=== PATIENT | female | born 1965 | race African-American/Black ===

== ENCOUNTER 2019-03-07 20:44 | Emergency (ER) | payer MEDICARE, MEDICAID ==
[~2019-03-07] VITALS: Ht 165.1 cm; Wt 65.8 kg
[2019-03-07 21:52] LABS: CALCIUM, SERUM 9.1 mg/dL (8.5-10.1); CREATININE 1.8 mg/dL (0.6-1.3); POTASSIUM 3.5 mmol/L (3.5-5.1)
--- NOTE | 2019-03-07 21:59 | NUR ---
[facility] PER UROLOGIST ORDER D/T HIGH ENOC AND INTERMITENT CP FOR THE PAST 1 MONTH. PT TO ER BED 8. AAOX4, AMBULATORY. BREATHING DEEP BUT REGULAR. PT STATES THAT HER CP HAS BEEN GOING ON FOR THE PAST 1 MONTH. DESCRIBES PAIN ACHING AND PRESSURE. PT ALSO REPORT FEELING SUFFOCATED IF SOMEONE IS SUFFOCATING HER. BP WAS NOTED INITIALLI AT 174/95. MD WAS AT BEDSIDE FOR EVAL. ORDERS RECEIVED NOTED AND CARRIED OUT.
--- NOTE | 2019-03-07 22:02 | NUR ---
JOSE EMERSON ON LAC 20G. BLOOD WAS DRAWN AND GIVEN TO KILN HEAD HOUSE OPERATOR AT BEDSIDE
[2019-03-07 22:08] LABS: BASOPHILS # (AUTO) 0.1 /CMM (0.0-0.2); BASOPHILS % (AUTO) 0.9 % (0.0-2.0); EOSINOPHILS % (AUTO) 5.7 % (0.0-6.0); HEMATOCRIT 35 % (33-45); HEMOGLOBIN 12.1 g/dL (11.5-14.8); LYMPHOCYTES # (AUTO) 1.5 /CMM (0.8-4.8); LYMPHOCYTES % (AUTO) 26.5 % (20.0-44.0); MEAN CORPUSCULAR HGB CONC 34 g/dl (31.0-36.0); MEAN CORPUSCULAR VOLUME 107 fL (82-100); MONOCYTES # (AUTO) 0.8 /CMM (0.1-1.30); MONOCYTES % (AUTO) 15.2 % (2.0-12.0); NEUTROPHILS # (AUTO) 2.9 /CMM (1.8-8.9); NEUTROPHILS % (AUTO) 51.7 % (43.0-81.0); PLATELET COUNT (AUTO) 144 /CMM (150-450); WHITE BLOOD COUNT (AUTO) 5.6 K/uL (4.3-11.0)
[2019-03-07 22:35] LABS: EOSINOPHILS % (MANUAL) 2 % (0-4); LYMPHOCYTES % (MANUAL) 34 % (16-48); MONOCYTES % (MANUAL) 8 % (0-11.0); NEUTROPHILS % (MANUAL) 56 (42-76)
[2019-03-07 22:37] LABS: BILIRUBIN,DIRECT 0.1 mg/dL (0.0-0.2); BILIRUBIN,TOTAL 0.6 mg/dL (0.2-1.0); MAGNESIUM 1.8 mg/dL (1.8-2.4); PHOSPHORUS 2.6 mg/dL (2.5-4.9); TOTAL PROTEIN, SERUM 6.9 g/dL (6.4-8.2)
[2019-03-07] MEDS ORDERED: HYDROCODONE/APAP 10/325MG 1 EA TABLET ONE (22:43)
[2019-03-07] MEDS: HYDROCODONE/APAP 10/325MG 1 EA TABLET PO ONE (22:44)
--- NOTE | 2019-03-07 22:44 | NUR ---
Kaylee auguste in [facility] - 03/07/19 at 2249 by ANGELLA Fady RONDON [phone]
--- NOTE | 2019-03-07 23:28 | NUR ---
PT AMBULATED TO BATHROOM ON HER OWN W/O ASSITANCE ON STEADY GAIT
--- NOTE | 2019-03-07 23:48 | NUR ---
Kaylee auguste in ED - 03/07/19 at 2348 by JANINE SPOKE WITH NUCLEAR MED TECH. ETA 1-1.5 HOURS
--- NOTE | 2019-03-07 23:49 | NUR ---
SPOKE WITH NUCLEAR MED TECH. ETA 1-1.5 HOURS
--- NOTE | 2019-03-08 02:24 | NUR ---
PT BACK FROM PERFUSSION SCAN
--- NOTE | 2019-03-08 02:26 | NUR ---
NM: LUNG V/Q WAS COMPLETED. TECH:RB.
--- NOTE | 2019-03-08 04:40 | NUR ---
IV removed. Catheter intact and site benign. Pressure and 4x4 applied to site. No bleeding noted.Patient discharged to home in stable condition. Written and verbal after care instructions given. Patient verbalizes understanding of instruction. Pt ambulatory with a steady gait
[2019-03-08 04:44] VITALS: BP 158/84
== END 2019-03-08 04:46 | disposition home or self-care (01) ==
LOC: ER 20:50
DX: E11.22 Type 2 diabetes mellitus with diabetic chronic kidney disease (principal); I13.2 Hypertensive heart and chronic kidney disease with heart failure and with stage 5 chronic kidney disease, or end stage renal disease; I50.9 Heart failure, unspecified; N18.6 End stage renal disease; R07.89 Other chest pain; Z99.2 Dependence on renal dialysis; Z98.890 Other specified postprocedural states
CPT/HCPCS: 36415 ×2; 71045; 78582; 80048; 80076; 83735; 84100; 84145; 84484 ×2; 85025; 85378; 93005 ×2; 99284; A9540; A9567

== ENCOUNTER 2019-11-29 11:31 | Inpatient (IN) | payer MEDICARE, OTHER ==
[~2019-11-29] VITALS: Ht 165.1 cm; Wt 69.4 kg
--- NOTE | 2019-11-29 11:40 | NUR ---
sent by PMD due to chest pain, left rib area, sob x few months, worst today, last HD thursday. Patient a/ox4, no distress noted at this time. Attached to the monitor and storage bin tender.
[2019-11-29] MEDS ORDERED: MORPHINE SULFATE INJ 4 MG/ML DISP.SYRIN ONE (11:53)
[2019-11-29] MEDS ORDERED: hydrALAZINE HCL IV 20 MG VIAL ONE (11:53)
[2019-11-29] MEDS ORDERED: ONDANSETRON HCL/PF 4 MG/2 ML VIAL ONE (11:53)
[2019-11-29] MEDS ORDERED: hydrALAZINE HCL IV 20 MG VIAL IV ONE (12:00)
[2019-11-29] MEDS ORDERED: ONDANSETRON HCL/PF 4 MG/2 ML VIAL IVP ONE (12:00)
[2019-11-29] MEDS ORDERED: MORPHINE SULFATE INJ 2 MG/ML DISP.SYRIN IV ONE (12:00)
[2019-11-29 12:04] LABS: EOSINOPHILS % (AUTO) 4.6 % (0.0-6.0); HEMATOCRIT 38 % (33-45); HEMOGLOBIN 12.4 g/dL (11.5-14.8); LYMPHOCYTES # (AUTO) 0.6 /CMM (0.8-4.8); LYMPHOCYTES % (AUTO) 17.8 % (20.0-44.0); MEAN CORPUSCULAR HGB CONC 32 g/dl (31.0-36.0); MEAN CORPUSCULAR VOLUME 110 fL (82-100); MONOCYTES # (AUTO) 0.4 /CMM (0.1-1.30); MONOCYTES % (AUTO) 13.1 % (2.0-12.0); NEUTROPHILS # (AUTO) 2.1 /CMM (1.8-8.9); NEUTROPHILS % (AUTO) 63.5 % (43.0-81.0); PLATELET COUNT (AUTO) 158 /CMM (150-450); RED BLOOD CELL COUNT(AUTO) 3.49 MIL/uL (4.0-5.2); WHITE BLOOD COUNT (AUTO) 3.3 K/uL (4.3-11.0)
[2019-11-29 12:12] LABS: CALCIUM, SERUM 8.7 mg/dL (8.5-10.1); CREATININE 3.2 mg/dL (0.6-1.3); POTASSIUM 5.2 mmol/L (3.5-5.1)
[2019-11-29] MEDS ORDERED: DOCU-141 PO (13:12)
[2019-11-29] MEDS ORDERED: HYDR-3972 PO (13:12)
[2019-11-29] MEDS ORDERED: NIFE-35 PO (13:12)
[2019-11-29] MEDS ORDERED: FOLI0.8C PO (13:13)
[2019-11-29] MEDS ORDERED: CAPT50TA3 PO (13:13)
[2019-11-29] MEDS ORDERED: BENA20TA9 PO (13:13)
[2019-11-29] MEDS ORDERED: ISOS5TAB3 PO (13:13)
--- NOTE | 2019-11-29 13:16 | NUR ---
paged vip nephro
--- NOTE | 2019-11-29 14:02 | NUR ---
PATIENT RESTING, NO DISTRESS NOTED. DR. CRUZ AT BEDSIDE FOR EVAL.
--- NOTE | 2019-11-29 14:52 | NUR ---
REPORT GIVEN TO NICK BLANCO.
--- NOTE | 2019-11-29 15:54 | NUR ---
PATIENT TRANSFERRED TO ROOM VIA ACLS PROTOCOL, ENDORSED TO NICK BLANCO. IN STABLE CONDITION.
[2019-11-29 16:00] VITALS: BP 198/109
--- NOTE | 2019-11-29 16:00 | NUR ---
ORACLE DEVELOPER NOTES PATIENT RECEIVED ALERT AND ORIENTED X4, NO RESPIRATORY DISTRESS, C/O PAIN ON LEFT UPPER CHEST 7/10 WITH ACTIVITY. PATIENT'S SKIN WARM TO TOUCH, IV ACCESS ON THE LAC #20G INTACT AND PATENT. AV FISTULA ON THE KVNG, SKIN ASSESSED NO SKIN BREAKDOWN. PATIENT'S BELONGINGS AT BEDSIDE, MD AWARE OF ADMISSION, AWAITING FOR ADMISSION ORDERS.
[2019-11-29] MEDS: INDOMETHACIN 25 MG CAPSULE PO SCH (18:04)
--- NOTE | 2019-11-29 19:20 | NUR ---
SECRETARY RECEPTIONIST NOTES RECEIVED PATIENT RESTING IN BED COMFORTABLY; BREATHING EVEN AND UNLABORED; NO SOB NOTED; PATIENT TOLERATING ROOM AIR WELL; CURRENTLY UNDERGOING DIALYSIS WITH HD NURSE AT BEDSIDE; TELE MONITOR READS SINUS RHYTHM 74BPM; LAC #20 INTACT AND PATENT; FLUSHING WELL; NO S/S OF REDNESS OR INFILTRATION NOTED; KVNG AV FISTULA INTACT FOR HD; SAFETY PRECAUTIONS IMPLEMENTED; BED LOCKED IN LOW POSITION; SIDE RAILSX2; CALL LIGHT WITHIN REACH; WILL CONT TO MONITOR
[2019-11-29] MEDS ORDERED: ZOLPIDEM TARTRATE 5 MG TABLET PO PRN (19:30)
[2019-11-29] MEDS ORDERED: ACETAMINOPHEN 325 MG TABLET PO PRN (19:30)
[2019-11-29] MEDS ORDERED: ONDANSETRON HCL/PF 4 MG/2 ML VIAL IVP PRN (19:30)
[2019-11-29] MEDS ORDERED: Z GUARD REMEDY 2 OZ OINT TP PRN (19:30)
[2019-11-29 20:00] VITALS: BP 185/113
[2019-11-29 20:43] VITALS: BP 185/113
--- NOTE | 2019-11-29 22:02 | NUR ---
TECTONOPHYSICIST NOTES DIALYSIS NURSE AT BEDSIDE; PATIENT BP 183/106 HR 69; NO BP MEDS DUE DURING SHIFT; SPOKE WITH CLIENT RELATIONSHIP CONSULTANT MD MELGOZA; ORDERED HYDRALAZINE 25MG PO Q6HRS PRN SBP OVER 160; WILL ADMINISTER PER MD ORDER AND CONT TO MONITOR
[2019-11-29] MEDS: hydrALAZINE HCL 25 MG TABLET PO PRN (22:19)
--- NOTE | 2019-11-29 23:54 | NUR ---
FOREST RESOURCES PROFESSOR NOTES PATIENT STILL UNDERGOING HD AND HD NURSE AT BEDSIDE; BP 170/98, TELE MONITOR READS SINUS RHYTHM 70BPM; WILL CONT TO MONITOR
--- NOTE | 2019-11-29 23:58 | NUR ---
AUTOS DISASSEMBLER NOTES HD COMPLETED; 2300 OUTPUT; WILL CONT TO MONITOR
[2019-11-30] VITALS (8 sets, daily range): BP systolic 148–181; BP diastolic 68–104
[2019-11-30] MEDS: HYDROCODONE/APAP 5/325MG 1 EACH TABLET PO PRN ×3 (00:11→21:11)
--- NOTE | 2019-11-30 00:20 | NUR ---
PARTRIDGE FARMER NOTES PATIENT REFUSED NITRO OINTMENT SCHEDULED; PATIENT REQUESTED NORCO; BP 170/98; WILL CONT TO MONITOR;
--- NOTE | 2019-11-30 04:30 | NUR ---
DRAPERY SEAMSTRESS NOTES PATIENT BP 170/104 P: 68, HYDRALAZINE 25 MG PO GIVEN PER MD ORDER; WILL CONT TO MONITOR BP RE-CHECKED 6 164/96 P: 63, WILL CONT TO MONITOR
[2019-11-30] MEDS: hydrALAZINE HCL 25 MG TABLET PO PRN (04:39)
[2019-11-30] MEDS: NITROGLYCERIN 30 GM TUBE TOP SCH ×3 (05:16→06:14)
--- NOTE | 2019-11-30 05:16 | NUR ---
TARGET MAN NOTES PATIENT STILL REFUSING SCHEDULED NITRO OINTMENT; PATIENT EDUCATED AND INFORMED ON RISKS AND BENEFITS; PATIENT STILL REFUSED MED AND IS DENYING CHEST PAIN; WILL CONT TO MONITOR AND INFORM ONCOMING SHIFT ABOUT PATIENT REFUSAL OF MED
[2019-11-30 06:26] LABS: BASOPHILS % (AUTO) 0.7 % (0.0-2.0); EOSINOPHILS % (AUTO) 5.2 % (0.0-6.0); HEMATOCRIT 38 % (33-45); HEMOGLOBIN 12.6 g/dL (11.5-14.8); LYMPHOCYTES # (AUTO) 0.8 /CMM (0.8-4.8); LYMPHOCYTES % (AUTO) 29.8 % (20.0-44.0); MEAN CORPUSCULAR HGB CONC 33 g/dl (31.0-36.0); MEAN CORPUSCULAR VOLUME 108 fL (82-100); MONOCYTES # (AUTO) 0.5 /CMM (0.1-1.30); MONOCYTES % (AUTO) 16.9 % (2.0-12.0); NEUTROPHILS # (AUTO) 1.3 /CMM (1.8-8.9); NEUTROPHILS % (AUTO) 47.4 % (43.0-81.0); PLATELET COUNT (AUTO) 129 /CMM (150-450); RED BLOOD CELL COUNT(AUTO) 3.55 MIL/uL (4.0-5.2); WHITE BLOOD COUNT (AUTO) 2.8 K/uL (4.3-11.0)
--- NOTE | 2019-11-30 06:35 | NUR ---
LEARNING ADMINISTRATOR CLOSING NOTES PATIENT RESTING IN BED COMFORTABLY; BREATHING EVEN AND UNLABORED; NO SOB NOTED; TOLERATING ROOM AIR WELL; A/OX4; L AC #20 SL INTACT AND PATENT; FLUSHING WELL; NO S/S OF REDNESS OR INFILTRATION; ALL NEEDS RENDERED; PATIENT ABLE TO MAKE NEEDS KNOWN; PATIENT AGREED TO TAKE NITRO CREAM; NITRO ADMINISTERED PER MD ORDER; SAFETY PRECAUTIONS IMPLEMENTED; BED LOCKED IN LOW POSITION; SIDE RAILS X2; CALL LIGHT WITHIN REACH; WILL ENDORSE DANIELLA TO ONCOMING SHIFT Addendum: 11/30/19 at 0638 by ANNIE ANDUJAR RN TELE MONITOR READS SINUS RHYTHM 68BPM
[2019-11-30 06:41] LABS: CALCIUM, SERUM 8.4 mg/dL (8.5-10.1); CREATININE 2.3 mg/dL (0.6-1.3); PHOSPHORUS 4.8 mg/dL (2.5-4.9); POTASSIUM 4.2 mmol/L (3.5-5.1)
--- NOTE | 2019-11-30 07:30 | NUR ---
RECEIVED PT THIS AM ALERT AND ORIENTED X3.NO SPECIFIC COMPLAINTS.DR. HERNANDEZ IN AND REQUESTING PT. HAVE A CT ANGIO OF HEART. PT. AGREEABLE.
[2019-11-30] MEDS ORDERED: ISOSORBIDE DINITRATE (5MG) 5 MG TABLET PO SCH (09:00)
[2019-11-30] MEDS: DOCUSATE SODIUM 100 MG CAPSULE PO SCH (09:01)
[2019-11-30] MEDS: BENAZEPRIL HCL 20 MG TABLET PO SCH (09:01)
[2019-11-30] MEDS: FOLIC ACID 1 MG TABLET PO SCH (09:02)
[2019-11-30] MEDS: ISOSORBIDE DINITRATE (20MG) 20 MG TABLET PO SCH ×3 (09:02→18:22)
[2019-11-30] MEDS: NIFEdipine XL (30MG) 30 MG TAB PO SCH (09:02)
[2019-11-30] MEDS: INDOMETHACIN 25 MG CAPSULE PO SCH ×2 (09:03→18:22)
[2019-11-30 09:41] LABS: EOSINOPHILS % (MANUAL) 3 % (0-4); LYMPHOCYTES % (MANUAL) 41 % (16-48); MONOCYTES % (MANUAL) 11 % (0-11.0); NEUTROPHILS % (MANUAL) 45 (42-76)
[2019-11-30] MEDS: hydrALAZINE HCL 50 MG TABLET PO SCH ×3 (10:31→18:22)
--- NOTE | 2019-11-30 12:30 | NUR ---
KIDNEY FUNCTION DISCUSSED WITH DR. MANJARREZ AND DR. HERNANDEZ.
--- NOTE | 2019-11-30 14:00 | NUR ---
some resistance with iv flushing,so removed and midline cath inserted,to lt. upper arm.
[2019-11-30] MEDS ORDERED: IV NS 0.9% 250 ML IV ONE (15:07)
[2019-11-30] MEDS ORDERED: CT SWABBABLE VALVE TRANS SET 1 EA INFUS.SET MC ONE (15:07)
[2019-11-30] MEDS ORDERED: IOHEXOL-350 100 ML VIAL IV ONE (15:07)
[2019-11-30] MEDS ORDERED: NITROGLYCERIN 0.4 MG/TAB BOTTLE SL ONE (15:30)
[2019-11-30] MEDS ORDERED: METOPROLOL TARTRATE INJ 5 MG/5 ML AMPUL ONE (15:52)
[2019-11-30] MEDS: METOPROLOL TARTRATE INJ 5 MG/5 ML AMPUL IVP PRN ×2 (15:54→15:59)
--- NOTE | 2019-11-30 17:00 | NUR ---
TOLERATED CT ANGIO.EARLIER IN SHIFT MED. X1 FOR LT SIDED CHEST DISCOMFORT.
--- NOTE | 2019-11-30 19:44 | NUR ---
MS RN OPENING NOTES RECEIVED PATIENT RESTING IN BED COMFORTABLY; A/OX4; BREATHING EVEN AND UNLABORED; NO SOB NOTED; PATIENT TOLERATING ROOM AIR WELL; PER AM SHIFT; PATIENT NON-COMPLIANT WITH MEDICATION REGIME AND TREATMENT PLAN; WILL MONITOR; L UA MIDLINE #18 INTACT AND PATENT; FLUSHING WELL; NO S/S OF REDNESS OR INFILTRATION NOTED; SAFETY PRECAUTIONS IMPLEMENTED; BED LOCKED IN LOW POSITION; SIDE RAILSX2; CALL LIGHT WITHIN REACH; WILL CONT TO MONITOR
--- NOTE | 2019-12-01 00:10 | NUR ---
MS RN NOTES NO CHEM PROPHYLAXIS ORDERED FOR PATIENT; SPOKE WITH DR. MELGOZA, ORDERED HEPARIN 5000U SQ Q12HR; WILL START CHEM PROPHYLAXIS IN AM;
--- NOTE | 2019-12-01 02:39 | NUR ---
MS RN NOTES PATIENT RESTING IN BED COMFORTABLY; A/OX4; BREATHING EVEN AND UNLABORED; NO DISTRESS; AWAKENS EASILY; WILL CONT TO MONITOR
--- NOTE | 2019-12-01 06:55 | NUR ---
MS RN CLOSING NOTES PATIENT RESTING IN BED COMFORTABLY; A/OX4; BREATHING EVEN AND UNLABORED; NO SOB NOTED; PATIENT TOLERATING ROOM AIR WELL; NOA MIDLINE #18 INTACT AND PATENT; FLUSHING WELL; NO S/S OF REDNESS OR INFILTRATION; R UA FISTULA INTACT; ALL NEEDS RENDERED; ABLE TO MAKE NEEDS KNOWN; SAFETY PRECAUTIONS IMPLEMENTED; BED LOCKED IN LOW POSITION; SIDE RAILS X2; CALL LIGHT WITHIN REACH; WILL ENDORSE DANIELLA TO ONCOMING SHIFT
[2019-12-01 08:00] VITALS: BP 179/94
[2019-12-01] MEDS ORDERED: HEPARIN SODIUM, PORCINE 5000 UNITS/1 ML VIAL SQ SCH (09:00)
[2019-12-01] MEDS: NIFEdipine XL (30MG) 30 MG TAB PO SCH (09:06)
[2019-12-01] MEDS: FOLIC ACID 1 MG TABLET PO SCH (09:07)
[2019-12-01] MEDS: BENAZEPRIL HCL 20 MG TABLET PO SCH (09:07)
[2019-12-01] MEDS: INDOMETHACIN 25 MG CAPSULE PO SCH (09:07)
[2019-12-01] MEDS: ISOSORBIDE DINITRATE (20MG) 20 MG TABLET PO SCH (09:07)
[2019-12-01] MEDS: hydrALAZINE HCL 50 MG TABLET PO SCH ×2 (09:07→13:05)
[2019-12-01] MEDS: DOCUSATE SODIUM 100 MG CAPSULE PO SCH (09:08)
--- NOTE | 2019-12-01 10:02 | NUR ---
BEDSIDE HD STARTED
--- NOTE | 2019-12-01 12:38 | NUR ---
HD finished with output 2000 ml. VS are stable and within base line , afebrile.
[2019-12-01 13:05] VITALS: BP 155/84
--- NOTE | 2019-12-01 17:30 | NUR ---
Patient cleared for d/c by .Patient awake , alert and oriented x3 , independent with ADLs, steady. VS are stable and within baseline, breathing unlabored and even on room air with saturation 98%. Patient denies any pain or discomfort. All needs attended prior d/c. Patient has no skin issues. D/C instructions and education provided and pt verbalized understanding. Patient will f/u with PCP in 2 weeks and continue on outpatient HD. Midline removed with no bleeding. ID wrist band removed. Patient sighed d/c papers and valuable form and all belongings with the patient. Patient safely transferred to [facility] via wheelchair.
== END 2019-12-01 17:30 | disposition home or self-care (01) | DRG 280 ==
LOC: ER 11:31 → TELE 14:54 → MED 11-30 11:33
PROVIDERS: ADMIT Nurse Practitioner Acute Care; ATTEND Internal Medicine
PROC: 5A1D70Z Performance of Urinary Filtration, Intermittent, Less than 6 Hours Per Day (ICD-10-PCS; principal; 2019-11-29)
PROC: 05HY33Z Insertion of Infusion Device into Upper Vein, Percutaneous Approach (ICD-10-PCS; 2019-12-01)
DX: I13.2 Hypertensive heart and chronic kidney disease with heart failure and with stage 5 chronic kidney disease, or end stage renal disease (principal); N18.6 End stage renal disease; I21.A1 Myocardial infarction type 2; I50.43 Acute on chronic combined systolic (congestive) and diastolic (congestive) heart failure; Z99.2 Dependence on renal dialysis; D86.9 Sarcoidosis, unspecified; M19.90 Unspecified osteoarthritis, unspecified site; Z79.899 Other long term (current) drug therapy; I25.10 Atherosclerotic heart disease of native coronary artery without angina pectoris; I27.21 Secondary pulmonary arterial hypertension; I70.0 Atherosclerosis of aorta; D64.9 Anemia, unspecified; R07.89 Other chest pain; E87.5 Hyperkalemia; I27.20 Pulmonary hypertension, unspecified; D75.89 Other specified diseases of blood and blood-forming organs; E04.1 Nontoxic single thyroid nodule; J98.4 Other disorders of lung; D69.6 Thrombocytopenia, unspecified
CPT/HCPCS: 36410; 36415; 71045-TC; 71250-TC; 75574; 80048-TC; 80061-TC; 83540-TC; 83735-TC; 83880; 84100-TC; 84484-TC; 85025-TC; 85652-TC; 86706; 87081-TC; 87340; 90935-TC; 93307-TC; 93970-TC; G0378; J0360; J1644; J2270; J2405; J3490; J7050; Q9967

== ENCOUNTER 2024-03-17 05:12 | Inpatient (IN) | payer MEDICARE, OTHER ==
[~2024-03-17] VITALS: Ht 165.1 cm; Wt 65.3 kg
[~2024-03-17 05:12] MED LIST: BENA20TA9 PO; CAPT50TA3 PO; DOCU-141 PO; FOLI0.8C PO; HYDR-3972 PO; ISOS5TAB3 PO; NIFE-35 PO
[2024-03-17] MEDS ORDERED: DILTIAZEM HCL 25 MG IV ONE (05:45)
[2024-03-17] MEDS: DILTIAZEM HCL 50 MG IV IV ONE (06:00)
[2024-03-17 06:05] LABS: BASOPHILS % (AUTO) 0.5 % (0.0-2.0); EOSINOPHILS # (AUTO) 0.2 K/uL (0.0-0.7); EOSINOPHILS % (AUTO) 2.9 % (0.0-6.0); HEMATOCRIT 27 % (33-45); HEMOGLOBIN 8.5 g/dL (11.5-14.8); LYMPHOCYTES # (AUTO) 0.7 K/uL (0.8-4.8); LYMPHOCYTES % (AUTO) 13.1 % (20.0-44.0); MEAN CORPUSCULAR HEMOGLOBIN 35 PG (26.0-33.0); MEAN CORPUSCULAR HGB CONC 31 g/dl (31.0-36.0); MEAN CORPUSCULAR VOLUME 112 fL (82-100); MONOCYTES # (AUTO) 1.1 K/uL (0.1-1.30); MONOCYTES % (AUTO) 20.3 % (2.0-12.0); NEUTROPHILS # (AUTO) 3.4 K/uL (1.8-8.9); NEUTROPHILS % (AUTO) 63.2 % (43.0-81.0); PLATELET COUNT (AUTO) 161 K/uL (150-450); RED BLOOD CELL COUNT(AUTO) 2.44 MIL/uL (4.0-5.2); RED CELL DISTRIBUTION WIDTH 21.1 % (11.5-15.0); WHITE BLOOD COUNT (AUTO) 5.4 K/uL (4.3-11.0)
[2024-03-17 06:20] LABS: INR 1.09 (0.91-1.10); PARTIAL THROMBOPLASTIN TIME 24.8 SEC (24.3-34.3); PROTHROMBIN TIME 11.5 SECS (9.2-11.1)
[2024-03-17 06:44] LABS: ALANINE AMINOTRANSFERASE 15 U/L (12-78); ALBUMIN 3.6 g/dL (3.4-5.0); ALKALINE PHOSPHATASE 168 U/L (46-116); ASPARTATE AMINOTRANSFERASE 26 U/L (15-37); BILIRUBIN,DIRECT 0.2 mg/dL (0.0-0.2); BILIRUBIN,TOTAL 0.7 mg/dL (0.2-1.0); CALCIUM, SERUM 9.5 mg/dL (8.5-10.1); CARBON DIOXIDE 35 mmol/L (21-32); CHLORIDE 98 mmol/L (98-107); GLUCOSE 108 mg/dL (74-106); POTASSIUM 5.4 mmol/L (3.5-5.1); SODIUM SERUM 139 mmol/L (136-145); TOTAL PROTEIN, SERUM 7.9 g/dL (6.4-8.2); UREA NITROGEN, BLOOD 54 mg/dL (7-18)
[2024-03-17 06:49] LABS: CREATININE 9.1 mg/dL (0.6-1.3)
[2024-03-17] MEDS ORDERED: DIAZ10TA4 PO (08:19)
[2024-03-17] MEDS ORDERED: HYDR-3976 PO (08:19)
[2024-03-17] MEDS ORDERED: CARV12.5 PO (08:19)
[2024-03-17] MEDS ORDERED: FOLI0.4T6 PO (08:19)
[2024-03-17] MEDS ORDERED: ISOS60TA72 PO (08:19)
[2024-03-17] MEDS ORDERED: FAMO-108 PO (08:19)
[2024-03-17] MEDS ORDERED: HYDR-4077 PO (08:19)
[2024-03-17] MEDS ORDERED: SIME80TA15 PO (08:19)
[2024-03-17] MEDS ORDERED: CLON0.1T PO (08:19)
[2024-03-17] MEDS ORDERED: HYDR200T4 PO (08:19)
[2024-03-17] MEDS ORDERED: DOCU100T10 PO (08:19)
[2024-03-17] MEDS ORDERED: SEVE800T28 PO (08:19)
[2024-03-17] MEDS ORDERED: ONDANSETRON HCL/PF 4 MG/2 ML VIAL IVP PRN (09:30)
[2024-03-17] MEDS: ASPIRIN 81 MG TAB.CHEW PO ONE (09:30)
[2024-03-17] MEDS ORDERED: SIMETHICONE 80 MG TAB.CHEW PO PRN (09:30)
[2024-03-17] MEDS ORDERED: Z GUARD REMEDY 4 OZ OINT TP PRN (09:30)
[2024-03-17] MEDS ORDERED: MAG HYDROX/AL HYDROX/SIMETH 30 ML UDC PO PRN (09:30)
[2024-03-17] MEDS ORDERED: CLONIDINE HCL 0.1 MG TABLET PO PRN (09:30)
[2024-03-17] MEDS ORDERED: MAGNESIUM HYDROXIDE 30 ML UDC PO PRN (09:30)
[2024-03-17] MEDS ORDERED: ASPIRIN 81 MG TAB.CHEW ONE (10:32)
[2024-03-17] MEDS ORDERED: FAMOTIDINE 10 MG TABLET PO PRN (11:00)
[2024-03-17] MEDS: SODIUM BICARBONATE SYR 50 MEQ/50 ML DISP.SYRIN IV ONE (11:00)
[2024-03-17] MEDS: Calcium Gluconate 1GM/10ML 4.65 MEQ in IV NS 0.9% 100 ML IV ONE (11:05)
[2024-03-17 12:00] VITALS: BP 166/90; TEMP 98.4; O2SAT 97
[2024-03-17] MEDS ORDERED: FAMOTIDINE (20 MG) 20 MG TABLET PO PRN (12:00)
[2024-03-17] MEDS: hydrALAZINE HCL 50 MG TABLET PO SCH (13:00)
[2024-03-17] MEDS: SEVELAMER CARBONATE 800 MG TABLET PO SCH (14:30)
[2024-03-17] MEDS: ACETAMINOPHEN 325 MG TABLET PO PRN (14:30)
[2024-03-17 16:00] VITALS: BP 165/76; TEMP 98.1; O2SAT 100
[2024-03-17] MEDS: DOCUSATE SODIUM 100 MG CAPSULE PO SCH (16:58)
[2024-03-17] MEDS: DIAZEPAM 5 MG TABLET PO SCH (16:58)
[2024-03-17 20:00] VITALS: BP 157/89; TEMP 98.1; O2SAT 100
[2024-03-17] MEDS: HYDROCODONE/APAP 10/325MG TABLET PO PRN (21:45)
[2024-03-18] VITALS: BP 119/84; TEMP 97; O2SAT 100
[2024-03-18] MEDS: DIAZEPAM 5 MG TABLET PO ONE (00:30)
[2024-03-18 04:00] VITALS: BP 125/87; TEMP 98.1; O2SAT 98
[2024-03-18 06:06] LABS: BASOPHILS % (AUTO) 0.9 % (0.0-2.0); EOSINOPHILS # (AUTO) 0.2 K/uL (0.0-0.7); EOSINOPHILS % (AUTO) 4.1 % (0.0-6.0); HEMATOCRIT 26 % (33-45); HEMOGLOBIN 7.9 g/dL (11.5-14.8); LYMPHOCYTES # (AUTO) 0.4 K/uL (0.8-4.8); LYMPHOCYTES % (AUTO) 9.8 % (20.0-44.0); MEAN CORPUSCULAR HEMOGLOBIN 34 PG (26.0-33.0); MEAN CORPUSCULAR HGB CONC 31 g/dl (31.0-36.0); MEAN CORPUSCULAR VOLUME 111 fL (82-100); MONOCYTES # (AUTO) 0.9 K/uL (0.1-1.30); MONOCYTES % (AUTO) 20.5 % (2.0-12.0); NEUTROPHILS # (AUTO) 2.9 K/uL (1.8-8.9); NEUTROPHILS % (AUTO) 64.7 % (43.0-81.0); PLATELET COUNT (AUTO) 138 K/uL (150-450); RED BLOOD CELL COUNT(AUTO) 2.32 MIL/uL (4.0-5.2); RED CELL DISTRIBUTION WIDTH 20.1 % (11.5-15.0); WHITE BLOOD COUNT (AUTO) 4.5 K/uL (4.3-11.0)
[2024-03-18 06:20] LABS: CALCIUM, SERUM 9.4 mg/dL (8.5-10.1); PHOSPHORUS 6.1 mg/dL (2.5-4.9); POTASSIUM 4.7 mmol/L (3.5-5.1)
[2024-03-18 06:23] LABS: CREATININE 8.1 mg/dL (0.6-1.3)
[2024-03-18 07:37] LABS: ANISOCYTOSIS 1+; BASOPHILS % (MANUAL) 0 % (0.0-2.0); EOSINOPHILS % (MANUAL) 2 % (0-4); HYPOCHROMASIA FEW; LYMPHOCYTES % (MANUAL) 10 % (16-48); MONOCYTES % (MANUAL) 18 % (0-11.0); NEUTROPHILS % (MANUAL) 70 (42-76); PLATELET ESTIMATE DECREASED; STOMATOCYTES RARE
[2024-03-18 08:00] VITALS: BP 166/99; TEMP 97.7; O2SAT 96
[2024-03-18] MEDS: ISOSORBIDE MONONITRATE (30MG) 30 MG TAB.SR.24H PO SCH (08:33)
[2024-03-18] MEDS: HYDROXYCHLOROQUINE 200 MG TABLET PO SCH (08:38)
[2024-03-18] MEDS: FOLIC ACID 1 MG TABLET PO SCH (08:38)
[2024-03-18] MEDS: CARVEDILOL 12.5 MG TABLET PO SCH (08:38)
[2024-03-18 12:00] VITALS: BP 110/62; TEMP 97.7; O2SAT 96
[2024-03-18 16:00] VITALS: BP 120/74; TEMP 97.5; O2SAT 95
[2024-03-18 20:00] VITALS: BP 127/67; TEMP 97.7; O2SAT 99
[2024-03-19] VITALS (7 sets, daily range): BP systolic 98–137; BP diastolic 61–89; TEMP 97.8–98.2; O2SAT 95–99
[2024-03-22 02:07] LABS: HEPATITIS B CORE AB, TOTAL Positive (Negative); HEPATITIS B SURFACE AB Reactive (.)
== END 2024-03-19 19:02 | disposition home or self-care (01) | DRG 280 ==
LOC: ER 05:31 → TELE1 10:45
PROVIDERS: ADMIT Internal Medicine; ATTEND Internal Medicine
PROC: 5A1D70Z Performance of Urinary Filtration, Intermittent, Less than 6 Hours Per Day (ICD-10-PCS; principal; 2024-03-17)
DX: I13.2 Hypertensive heart and chronic kidney disease with heart failure and with stage 5 chronic kidney disease, or end stage renal disease (principal); I50.43 Acute on chronic combined systolic (congestive) and diastolic (congestive) heart failure; I21.A1 Myocardial infarction type 2; N18.6 End stage renal disease; Z99.2 Dependence on renal dialysis; Z87.09 Personal history of other diseases of the respiratory system; Z99.81 Dependence on supplemental oxygen; Z90.5 Acquired absence of kidney; Z85.528 Personal history of other malignant neoplasm of kidney; M19.90 Unspecified osteoarthritis, unspecified site; I42.9 Cardiomyopathy, unspecified; I27.20 Pulmonary hypertension, unspecified; E87.5 Hyperkalemia; D63.8 Anemia in other chronic diseases classified elsewhere; Z79.899 Other long term (current) drug therapy; N62 Hypertrophy of breast
CPT/HCPCS: 36415; 71045-TC; 80048-TC; 80076-TC; 83735-TC; 84100-TC; 84484-TC; 85025-TC; 85730-TC; 86704; 86706; 87340; 90935-TC; 93307-TC; 93971-TC; A6253; A6403; G0378; J0610; J3490; J7030